=== PATIENT | female | born 1955 | race Caucasian/White ===

== ENCOUNTER 2025-02-03 11:51 | Emergency (ER) | payer MEDICARE, OTHER, SELFPAY ==
[2025-02-03 12:06] VITALS: BP 172/82
[2025-02-03 12:29] LABS: Hematocrit 45.3 % (37.0-47.0); Hemoglobin 14.7 g/dL (12.0-16.0); Mean Corp Hgb Conc. 32.5 g/dL (33.0-37.0); Mean Corpuscular Volume 89.5 fL (81.0-99.0); Nucleated Red Blood Cells % 0 %; Platelet Count 305 10^3/uL (130-400); Red Cell Dist. Width 12.4 % (11.5-14.5)
[2025-02-03 12:38] LABS: ALT (SGPT) 17 U/L (0-35); AST (SGOT) 19 U/L (14-36); Albumin 4.4 g/dl (3.5-5.0); Alkaline Phosphatase 63 U/L (38-126); Blood Urea Nitrogen 14 mg/dl (7-17); Calcium 9.3 mg/dl (8.4-10.2); Carbon Dioxide 25 mmol/L (22-30); Chloride 109 mmol/L (98-107); Glucose 109 mg/dl (70-99); Potassium 4.1 mmol/L (3.5-5.1); Sodium 140 mmol/L (135-145); Total Protein 7.8 g/dl (6.3-8.2); eGFR > 60.00
[2025-02-03 12:45] LABS: Troponin I < 0.012 ng/ml
[2025-02-03 13:00] VITALS: BP 149/73
[2025-02-03 14:00] VITALS: BP 142/55
[2025-02-03 14:11] VITALS: BP 154/80
[2025-02-03 14:15] VITALS: BP 150/84; BP 154/80; BP 163/79; PULSE 75; PULSE 77; PULSE 79
[2025-02-03 14:16] VITALS: BP 163/79
--- NOTE | 2025-02-03 14:18 | ED.GENMED ---
History of Present Illness
General
Chief Complaint: Dizziness
Source: patient
Exam Limitations: none
Time Seen by Provider: 02/03/25 14:03
Nursing documentation reviewed up to this point in time: agreed with
History of Present Illness
History of Present Illness:
Patient to the emergency department for evaluation of an episode of lightheadedness and a tapping sensation in her chest. States symptoms started [place] the [place] She denies any chest pain/pressure, shortness of breath,
nausea/vomiting/diaphoresis. She states she was seen by her PCP on Tuesday for a routine checkup. On her exam her PCP told her her EKG was abnormal. He sent her for an outpatient EKG which showed same. She was advised to follow-up with
cardiology. She was able to schedule an appointment for tomorrow morning. She states when her symptoms occurred today while walking in the mall she became concerned that this was related to her heart and prior abnormal EKG. EKG report was shown
to me by patient's spouse. Report of sinus rhythm with sinus arrhythmia, nonspecific ST changes. EKG today shows same. On exam she is alert, asymptomatic.
Past History
Past History
ED Past Medical History: HTN
Review of Systems
Review of Systems
Allergies reviewed?: Yes
All Other Systems: ROS reviewed and negative except as documented in HPI and ROS
Constitutional: Reports no symptoms
EENT: Reports no symptoms
Respiratory: Reports no symptoms
Cardiac: Reports other (1 episode of a tapping in her chest this a.m.)
ABD/GI: Reports no symptoms
: Reports no symptoms
Musculoskeletal: Reports no symptoms
Skin: Reports no symptoms
Neurological: Reports other (1 episode of lightheadedness this a.m.)
Psychiatric: Reports no symptoms
Phy Exam
General Physical Exam
General Presentation: well appearing and no apparent distress
General age: appears stated age
General Skin: warm and dry
General Habitus: normal
Cardiovascular Exam
Cardiovascular Exam: regular rate/rhythm
Pulmonary Exam
Pulmonary Exam: lungs clear and no respiratory distress
Neurological Exam
Neurological Exam: alert, oriented x3, CN II-XII intact (No nystagmus), no motor deficits and normal gait
Musculoskeletal Exam
Musculoskeletal Exam: full ROM and neuro vasc intact
Skin Exam
Skin Exam: normal color, warm/dry and no rash
Psychiatric Exam
Psychiatric Exam: normal mood/affect
Course
Orders/Labs/Results
Orders:
Orders
02/03/25 11:52
EKG [Electrocardiogram (*1)] Urgent
Reason for Study: Chest Pain
EKG- Treatment ONCE
02/03/25 12:12
CBC/With Diff [Complete Blood Count/With Diff] Urgent
CMP [Comprehensive Metabolic Panel] Urgent
Troponin I Urgent
02/03/25 14:15
Orthostatic VS- Treatment ONCE
Abnormal Lab Results
02/03/25
12:12
MCHC 32.5 L g/dL
(33.0-37.0)
Chloride 109 H mmol/L
(98-107)
Glucose 109 H mg/dl
(70-99)
02/03/25 12:12
02/03/25 12:12
Vital Signs
Initial and Last Documented VS:
Initial Vital Signs
Temp Pulse Resp Pulse Ox
98.1 F 95 15 98
02/03/25 12:02 02/03/25 12:02 02/03/25 12:02 02/03/25 12:02
Last Documented Vital Signs
Temp Pulse Resp BP Pulse Ox
98.1 F 73 20 154/80 95
02/03/25 12:02 02/03/25 14:00 02/03/25 14:00 02/03/25 14:11 02/03/25 14:00
*Pulse Oximetry
SaO2: 95
Oxygen Mode of Delivery: Room air
Patient hypoxic: no
*EKG
Rate: normal
Rhythm: sinus arrhythmia
Ischemia: non-specific ST changes
*Global Compensation Director Interpretation
Rate: normal
Rhythm: sinus
*Critical Care Note
Total Time (30-74mins, 75-104mins- exclusive of procedures): Not Applicable
Update Note
Update Note:
Patient to the emergency department with report of an episode of lightheadedness and a sensation of a tapping in her chest. Symptoms occurred this morning while [place] the mall. She denies any associated nausea vomiting or diaphoresis. She
denies any episodes of chest pain or shortness of breath. On exam she is alert and asymptomatic. Vital signs are stable. Negative tilt. EKG reviewed with Dr. Todd. Sinus rhythm with sinus arrhythmia, nonspecific ST changes. Troponin is
negative. No further testing required in ED today. Agree with plan to follow-up with cardiology in the a.m. as scheduled. She was given strict instructions on signs and symptoms to return to the emergency department and she is agreeable with this
plan.
ED Attending Note
-
Portions of this chart may have been created with voice recognition software.� Occasional wrong word or��sound alike� substitutions may have occurred due to the inherent limitations of voice recognition software.
Discharge Plan
Departure
Patient Disposition: Home (Routine Discharge)
Date of Disposition: 02/03/25
Time of Disposition: 14:15
Patient with high blood pressure during this ER visit?: No
Condition: Good
Covid-19: Not Applicable
Discharge Problem:
Lightheadedness
Instructions: Dizziness in adults - ED (DC)
Activity Restrictions/Additional Instructions:
Follow-up with your vehicle operator technician in the a.m. as scheduled. Return to the emergency department immediately for any chest pain/pressure, shortness of breath, nausea/vomiting/sweating, or for any further concerns.
Interventions
Interventions:
*Risk Screen - Suicide Last Done: 02/03/25 12:02
*General Assessment Last Done: 02/03/25 12:02
*Neglect/Abuse Screening Last Done: 02/03/25 12:02
*ED COVID-19 Vaccine History Last Done: 02/03/25 12:02
*ED Influenza Vaccine History Last Done: 02/03/25 12:02
Discharge Date and Time
Print Language: [id number]
== END 2025-02-03 14:40 | disposition home or self-care (01) ==
LOC: EMR 11:51
PROVIDERS: Emergency Medicine; EMERGENCY PHYSICIAN Emergency Medicine; FAMILY PHYSICIAN Family Medicine
DX: R42 Dizziness and giddiness (principal); I10 Essential (primary) hypertension; I49.8 Other specified cardiac arrhythmias
CPT/HCPCS: 99284; 80053; 84484; 85025; 93005